=== PATIENT | male | born 1970 | race Caucasian/White ===

== ENCOUNTER 2018-01-10 08:07 | Emergency (ER) | payer MEDICARE, MEDICAID ==
[~2018-01-10] VITALS: Ht 180.3 cm; Wt 80.0 kg
[~2018-01-10 08:07] MED LIST: AMOXICILLIN500 MG PO; ASPIRIN LOW DOS81 M2 PO; AUBAGIO14 MG PO; FAMOTIDINE20 M1 PO; FLEXERIL PO; GABAPENTIN300 MG PO; METOPROL TAR25 MG PO; MYSOLINE50 M1 PO; PRAVASTATIN20 MG PO; SERTRALINE HCL50 MG PO; ULTRAM50 M1 PO
[2018-01-10 09:07] LABS: HEMATOCRIT 44.2 % (39.0-50.0); HEMOGLOBIN 14.9 g/dl (14.0-18.0); IMMATURE GRANULOCYTES 0.8 % (0.0-1.0); MEAN CELL VOLUME 93.4 fL CALC (80.0-100.0); MEAN CORPUSCULAR HGB 31.5 pG CALC (26.0-32.0); MEAN CORPUSCULAR HGB CONC 33.7 g/L CALC (32.0-36.0); NEUT# 6.69 thou/uL (1.82-7.42); RED BLOOD COUNT 4.73 mill/uL (4.70-6.10); URINE BILIRUBIN - DIPSTICK NEGATIVE (NEGATIVE); URINE BLOOD DIPSTICK LARGE (NEGATIVE); URINE COLOR YELLOW; URINE GLUCOSE - DIPSTICK NEGATIVE (NEGATIVE); URINE KETONE NEGATIVE (NEGATIVE); URINE LEUK ESTERASE NEGATIVE (NEGATIVE); URINE NITRITE - DIPSTICK NEGATIVE (Negative); URINE PH 6.5 (4.5-8.0); URINE PROTEIN - DIPSTICK NEGATIVE (NEG-TRACE); URINE SPECIFIC GRAVITY 1.015; URINE UROBILINOGEN - DIPSTICK 0.2 E.U./dL (0.2)
[2018-01-10 09:10] LABS: URINE CLARITY HAZY; URINE RBC 50-100 RBC/hpf (0-5)
[2018-01-10 09:15] LABS: ALBUMIN 3.8 g/dL (3.2-5.0); ALKALINE PHOSPHATASE 73 u/l (38-126); ANION GAP 13 (6-22 (CALC)); BILIRUBIN, TOTAL 0.3 mg/dL (0.0-1.4); BUN 13 mg/dL (9-20); BUN/CREATININE RATIO 14 (12-20 (CALC)); CARBON DIOXIDE 24 mmol/l (22-30); CHLORIDE 104 mmol/l (95-108); CREATININE 0.9 mg/dL (0.7-1.3); GFR > 60 ML/MIN (>=60 (CALC)); GFR FOR AFR.AMER. > 60 ML/MIN (>=60 (CALC)); LIPASE 117 u/l (23-300); POTASSIUM 4.5 mmol/l (3.5-5.1); SGOT/AST 21 u/l (17-59); SGPT/ALT 57 u/l (21-72); SODIUM 137 mmol/l (137-146); TOTAL PROTEIN 6.5 g/dL (6.3-8.2)
[2018-01-10] MEDS ORDERED: CEPHALEXIN500 MG PO (09:36)
[2018-01-10] MEDS ORDERED: MOTRIN400 MG PO (09:36)
[2018-01-10] MEDS ORDERED: HYDROCO/APAP1 TA9 PO (09:36)
[2018-01-10] MEDS ORDERED: TAMSULOSIN0.4 MG PO (09:36)
[2018-01-10 09:48] VITALS: BP 155/86
== END 2018-01-10 09:48 | disposition home or self-care (01) ==
LOC: ED 08:07
PROVIDERS: Family Medicine
DX: N20.1 Calculus of ureter (principal); I25.2 Old myocardial infarction; I05.0 Rheumatic mitral stenosis; F17.210 Nicotine dependence, cigarettes, uncomplicated

== ENCOUNTER 2018-02-04 07:11 | Day surgery (SDC) | payer MEDICARE, MEDICAID ==
[~2018-02-04] VITALS: Ht 180.3 cm; Wt 93.0 kg
[~2018-02-04 07:11] MED LIST changes: +AMLODIPINE5 MG PO; +BUPROPION150 M3 PO; +CEPHALEXIN500 MG PO; +CHANTIX PO; +DULCOLAX SS100 MG PO; +HYDROCO/APAP1 TA9 PO; +LIPITOR10 M1 PO; +LOSARTAN POT50 MG PO; +MOTRIN400 MG PO; +OCREVUS IV; +PROPRANOLOL80 M1 PO; +TAMSULOSIN HCL0.4 MG PO; +TAMSULOSIN0.4 MG PO; +VITAMIN B 12250 MCG PO; +VITAMIN D32000 UNI2 PO
[2018-02-04 09:24] VITALS: BP 130/81
== END 2018-02-04 09:45 | disposition home or self-care (01) ==
LOC: ENDO 07:11 → ORM 09:30 → ENDO 09:45 → ORM 09:50 → ENDO 10:20
PROVIDERS: ATTEND Surgery
PROC: 0DJD8ZZ Inspection of Lower Intestinal Tract, Via Natural or Artificial Opening Endoscopic (ICD-10-PCS; principal; 2018-02-04)
DX: K59.00 Constipation, unspecified (principal); I10 Essential (primary) hypertension; E78.5 Hyperlipidemia, unspecified; G35 Multiple sclerosis; E78.00 Pure hypercholesterolemia, unspecified; E11.9 Type 2 diabetes mellitus without complications; F17.200 Nicotine dependence, unspecified, uncomplicated

== ENCOUNTER 2021-10-16 14:42 | Emergency (ER) | payer MEDICARE, MEDICAID ==
[~2021-10-16] VITALS: Ht 180.3 cm; Wt 115.9 kg
[2021-10-16] VITALS (7 sets, daily range): BP systolic 109–145; BP diastolic 68–88
[~2021-10-16 14:42] MED LIST changes: +CYMBALTA30 MG PO; +LYRICA75 MG PO
[2021-10-16 15:15] LABS: HEMATOCRIT 50.8 % (39.0-50.0); HEMOGLOBIN 16.6 g/dl (14.0-18.0); IMMATURE GRANULOCYTES 0.4 % (0.0-5.0); MEAN CELL VOLUME 96.2 fL CALC (80.0-100.0); MEAN CORPUSCULAR HGB 31.4 pG CALC (26.0-32.0); MEAN CORPUSCULAR HGB CONC 32.7 g/dL CAL (32.0-36.0); NEUT# 6.84 thou/uL (1.82-7.42); RED BLOOD COUNT 5.28 mill/uL (4.70-6.10); RED CELL DISTRI WIDTH 13.6 % (11.5-15.5)
[2021-10-16 15:40] LABS: ALBUMIN 4.2 g/dL (3.2-5.0); ALKALINE PHOSPHATASE 79 u/l (38-126); ANION GAP 12 (6-22 (CALC)); BUN 15 mg/dL (9-20); BUN/CREATININE RATIO 18 (12-20 (CALC)); CARBON DIOXIDE 28 mmol/l (22-30); CHLORIDE 102 mmol/l (95-108); CREATININE 0.8 mg/dL (0.7-1.3); GFR > 60 ML/MIN (>=60 (CALC)); GFR FOR AFR.AMER. > 60 ML/MIN (>=60 (CALC)); SGOT/AST 21 u/l (17-59); SODIUM 138 mmol/l (137-146)
[2021-10-16 15:43] LABS: BILIRUBIN, TOTAL 0.3 mg/dL (0.0-1.4)
[2021-10-16 15:45] LABS: URINE BILIRUBIN - DIPSTICK NEGATIVE (NEGATIVE); URINE BLOOD DIPSTICK NEGATIVE (NEGATIVE); URINE COLOR YELLOW; URINE GLUCOSE - DIPSTICK >=1000 mg/dL (NEGATIVE); URINE KETONE NEGATIVE (NEGATIVE); URINE LEUK ESTERASE NEGATIVE (NEGATIVE); URINE PROTEIN - DIPSTICK NEGATIVE (NEG-TRACE); URINE UROBILINOGEN - DIPSTICK 0.2 E.U./dL (0.2)
[2021-10-16 15:45] LABS: D-DIMER 0.29 mg/L (0.19-0.60)
[2021-10-16 15:48] LABS: URINE NITRITE - DIPSTICK NEGATIVE (Negative)
[2021-10-16 15:53] LABS: MYOGLOBIN 60 ng/mL (0 - 121)
[2021-10-16 15:59] LABS: INTERNATIONAL NORMALIZED RATIO 0.9 RATIO (0.7-1.3); PROTHROMBIN TIME 9.6 SECONDS (9.0-12.5)
== END 2021-10-16 17:06 | disposition home or self-care (01) ==
LOC: ED 14:42
PROVIDERS: Nurse Practitioner
DX: R07.9 Chest pain, unspecified (principal); I25.10 Atherosclerotic heart disease of native coronary artery without angina pectoris; I10 Essential (primary) hypertension; E11.9 Type 2 diabetes mellitus without complications; I05.0 Rheumatic mitral stenosis; E78.5 Hyperlipidemia, unspecified; I25.2 Old myocardial infarction; F17.210 Nicotine dependence, cigarettes, uncomplicated